=== PATIENT | male | born 1970 | race Caucasian/White ===

== ENCOUNTER 2018-01-02 19:40 | Emergency (ER) | payer OTHER ==
[~2018-01-02] VITALS: Ht 182.9 cm; Wt 95.0 kg
[2018-01-02 19:46] VITALS: BP 113/78
[2018-01-02] MEDS ORDERED: IBUPROFEN 200 MG TABLET PO ONE (21:00)
[2018-01-02] MEDS ORDERED: IBUPROFEN 200 MG TABLET ONE (21:01)
== END 2018-01-02 21:20 | disposition home or self-care (01) ==
LOC: ED 20:45
DX: M25.562 Pain in left knee (principal)
CPT/HCPCS: 29505; 99284

== ENCOUNTER 2019-10-15 06:48 | Emergency (ER) | payer BC, OTHER ==
[~2019-10-15] VITALS: Ht 182.9 cm; Wt 97.8 kg
--- NOTE | 2019-10-15 06:53 | NUR ---
CALLED NO ANSWER
[2019-10-15] MEDS ORDERED: ONDANSETRON 2MG/ML, 2ML ONE (07:27)
[2019-10-15] MEDS ORDERED: KETOROLAC 30 MG/1 ML ONE (07:27)
[2019-10-15] MEDS ORDERED: SODIUM CHLORIDE FLUSH 10ML SYR IVF ONE (07:30)
[2019-10-15] MEDS ORDERED: KETOROLAC 30 MG/1 ML IVPush ONE (07:30)
[2019-10-15] MEDS ORDERED: ONDANSETRON 2MG/ML, 2ML IVPush ONE (07:30)
[2019-10-15] MEDS ORDERED: MORPHINE SULFATE 4 MG/ML, 1ML IVPush PRN (07:30)
--- NOTE | 2019-10-15 07:48 | NUR ---
PT WITH R FLANK PAIN STARTING AT 0400 THIS AM. PT STATES HE HAD NOTICED SOME DIFFICULTY URINATING AND PAIN WITH URINATION APPROX 2 DAYS AGO. PT WITH NO HX OF KIDNEY STONES. PT DENIES N/V/D. PT TO BP, CONT PULSE OX, PIV INITIATED PT MEDICATED PER JUL. LABS DRAWN AND SENT. PT AMBULATED TO BR WITH STEADY GAIT, UA SAMPLE SENT TO LAB
[2019-10-15 07:54] LABS: BASOPHILS # (AUTO) 0.12 x10^3/uL (0-0.1); BASOPHILS % (AUTO) 1 % (0-1); EOSINOPHILS # (AUTO) 0.08 x10^3/uL (0-0.4); EOSINOPHILS % (AUTO) 1 % (1-7); LYMPHOCYTES # (AUTO) 1.52 x10^3/uL (1-3.4); LYMPHOCYTES % (AUTO) 18 % (22-44); MD NO; MEAN CORPUSCULAR HEMOGLOBIN 31.3 pg (27.5-34.5); MEAN CORPUSCULAR HGB CONC 33.5 g/dL (33.2-36.2); MEAN PLATELET VOLUME 8.3 fL (7.4-10.4); MONOCYTES # (AUTO) 0.76 x10^3/uL (0.2-0.8); MONOCYTES % (AUTO) 9 % (2-9); NEUTROPHILS # (AUTO) 5.91 x10^3/uL (1.8-6.8); NEUTROPHILS % (AUTO) 71 % (42-75); PLATELET COUNT 256 x10^3/uL (130-400); RED BLOOD COUNT 5.08 x10^6/uL (4.38-5.82); RED CELL DISTRIBUTION WIDTH 13.4 % (9.4-14.8)
[2019-10-15] MEDS ORDERED: MORPHINE SULFATE 4 MG/ML, 1ML ONE (07:57)
[2019-10-15 08:04] LABS: ALBUMIN 3.9 g/dL (3.4-5.0); ANION GAP 8 mmol/L (5-15); CALCIUM 8.9 mg/dL (8.5-10.1); CHLORIDE 113 mmol/L (98-107); CREATININE 1.13 mg/dL (0.7-1.3)
[2019-10-15 08:10] LABS: MICROSCOPIC INDICATED
[2019-10-15 08:51] VITALS: BP 111/68
--- NOTE | 2019-10-15 08:53 | NUR ---
CT COMPLETED, PT RESTING COMFORTABLY AT THIS TIME, VSS, NAD NOTED. PT PLACED FOR RECHECK
== END 2019-10-15 10:19 | disposition home or self-care (01) ==
LOC: ED 07:06
DX: N20.1 Calculus of ureter (principal); R10.9 Unspecified abdominal pain; M54.9 Dorsalgia, unspecified; R11.0 Nausea
CPT/HCPCS: 36415; 74176; 80048; 81001; 82040; 85025; 96374; 96375; 99284; J1885; J2270; J2405

== ENCOUNTER 2019-10-16 13:54 | Inpatient (IN) | payer BC ==
[~2019-10-16] VITALS: Ht 182.9 cm; Wt 112.7 kg
--- NOTE | 2019-10-16 14:11 | NUR ---
PT REFUSES WHEELCHAIR. PT EDUCATED REGARDING ALL RISKS AND SAFETY. PT STATES "I'D JUST RATHER WALK."
--- NOTE | 2019-10-16 14:11 | NUR ---
[employer] MECHANIC: PT TO ROOM FROM TRIAGE, GAIT SLOW AND STEADY
--- NOTE | 2019-10-16 14:36 | NUR ---
PT C/O LOWER ABD PAIN. PT SEEN HERE YESTERDAY AND DX WITH KIDNEY STONES. PT FILLED PRESCRIPTION OF PERCOCET AND ZOFRAN. PT STATES ZOFRAN IS WORKING, BUT NOT PERCOCET. PT STATES LAST BM WAS SATURDAY, THINKS HE MAY BE CONSTIPATED. TOOK STOOL SOFTENER THIS AM. PT AMBULATED TO RESTROOM TO PROVIDE URINE SAMPLE, UA COLLECTED AND SENT TO LAB. PIV PLACED, BLOOD COLLECTED. AWAITING ORDERS AT THIS TIME.
[2019-10-16 14:53] LABS: MICROSCOPIC AUTO
--- NOTE | 2019-10-16 15:14 | NUR ---
AT BEDSIDE FOR ASSESSMENT.
[2019-10-16] MEDS ORDERED: FAMOTIDINE 20 MG/2 ML ONE (15:26)
[2019-10-16] MEDS ORDERED: MORPHINE SULFATE 4 MG/ML, 1ML ONE (15:26)
[2019-10-16] MEDS ORDERED: ONDANSETRON 2MG/ML, 2ML ONE ×2 (15:26→21:36)
[2019-10-16] MEDS ORDERED: SODIUM CHLORIDE 0.9% 1,000ML IVBOLUS ONE (15:30)
[2019-10-16] MEDS ORDERED: FAMOTIDINE 20 MG/2 ML IV ONE (15:30)
[2019-10-16] MEDS ORDERED: SODIUM CHLORIDE FLUSH 10ML SYR IVF ONE (15:30)
[2019-10-16] MEDS ORDERED: ONDANSETRON 2MG/ML, 2ML IVPush ONE (15:30)
[2019-10-16] MEDS ORDERED: MORPHINE SULFATE 4 MG/ML, 1ML IVPush PRN (15:30)
--- NOTE | 2019-10-16 15:37 | NUR ---
MEDS ADMIN PER JUL. IVF RUNNING. PT PLACED ON 2L OXYGEN FOR SAFETY. CALL LIGHT IN REACH. PT AWARE OF STRICT NPO.
[2019-10-16 15:58] LABS: ALANINE AMINOTRANSFERASE 40 U/L (12-78); ALBUMIN 4.4 g/dL (3.4-5.0); ANION GAP 7 mmol/L (5-15); CALCIUM 9.1 mg/dL (8.5-10.1); CHLORIDE 103 mmol/L (98-107); CREATININE 1.83 mg/dL (0.7-1.3)
[2019-10-16 16:00] LABS: ALKALINE PHOSPHATASE 86 U/L (45-117); BILIRUBIN,TOTAL 1.4 mg/dL (0.2-1.0); TOTAL PROTEIN 8.8 g/dL (6.4-8.2)
[2019-10-16 16:34] LABS: MEAN CORPUSCULAR HGB CONC 33.2 g/dL (33.2-36.2); MEAN CORPUSCULAR VOLUME 93.5 fL (81-97); MEAN PLATELET VOLUME 9.2 fL (7.4-10.4); PLATELET COUNT 235 x10^3/uL (130-400); RED BLOOD COUNT 5.36 x10^6/uL (4.38-5.82); RED CELL DISTRIBUTION WIDTH 13.8 % (9.4-14.8)
--- NOTE | 2019-10-16 16:37 | NUR ---
NEW ORDER RECEIVED FOR CT. PT GOING TO CT.
[2019-10-16 17:13] LABS: BASOPHILS # (AUTO) 0.01 x10^3/uL (0-0.1); BASOPHILS % (AUTO) 0 % (0-1); EOSINOPHILS # (AUTO) 0.02 x10^3/uL (0-0.4); EOSINOPHILS % (AUTO) 0 % (1-7); LYMPHOCYTES # (AUTO) 1.46 x10^3/uL (1-3.4); LYMPHOCYTES % (AUTO) 10 % (22-44); MD SCAN; MONOCYTES # (AUTO) 1.47 x10^3/uL (0.2-0.8); MONOCYTES % (AUTO) 10 % (2-9); NEUTROPHILS # (AUTO) 11.48 x10^3/uL (1.8-6.8); NEUTROPHILS % (AUTO) 80 % (42-75)
--- NOTE | 2019-10-16 17:15 | NUR ---
ALL RESULTS ARE BACK AT THIS TIME. CHART UP FOR RECHECK.
--- NOTE | 2019-10-16 17:23 | NUR ---
AWAITING CONSULT WITH UROLOGY.
--- NOTE | 2019-10-16 17:36 | NUR ---
MD AT BEDSIDE TO UPDATE PT ON POC.
[2019-10-16] MEDS ORDERED: TAMSULOSIN 0.4 MG CAP.ER.24H ONE (17:43)
[2019-10-16] MEDS ORDERED: HYDROmorphone 1 MG/ML, 1ML INJ ONE (17:44)
--- NOTE | 2019-10-16 17:49 | NUR ---
MEDS ADMIN PER JUL. PT ON OXYGEN FOR SAFETY. PT TO BE ADMITTED.
[2019-10-16] MEDS ORDERED: HYDROmorphone 2 MG/ML, 1ML IVPush PRN ×2 (18:00→20:00)
[2019-10-16] MEDS ORDERED: TAMSULOSIN 0.4 MG CAP.ER.24H PO ONE (18:00)
[2019-10-16] MEDS ORDERED: SODIUM CHLORIDE 0.9% 1,000 ML IV ONE (18:46)
[2019-10-16] MEDS ORDERED: CEFTRIAXONE PMX 1GM/50ML 50 ML ONE (19:00)
[2019-10-16] MEDS ORDERED: HYDROmorphone 1 MG/ML, 1ML INJ IVPush PRN ×2 (19:00→21:30)
[2019-10-16] MEDS ORDERED: SODIUM CHLORIDE FLUSH 10ML SYR IVF PRN (19:00)
[2019-10-16] MEDS ORDERED: ONDANSETRON 2MG/ML, 2ML IVPush PRN ×2 (19:00→20:00)
[2019-10-16] MEDS ORDERED: CEFTRIAXONE PMX 1GM/50ML 50 ML IVPB ONE (19:00)
--- NOTE | 2019-10-16 19:10 | NUR ---
PT AMBULATED TO RESTROOM WITH STEADY GAIT. ABX ADMIN PER JUL. IVF RUNNING. PT RESTING ON GURNEY. NADN. AT BEDSIDE.
--- NOTE | 2019-10-16 19:28 | NUR ---
[facility] HOSPITAL[facility] AT BEDSIDE.
--- NOTE | 2019-10-16 19:42 | NUR ---
REPORT GIVEN TO OR
[2019-10-16] MEDS: SODIUM CHLORIDE 0.9% 1,000 ML IV SCH (19:56)
[2019-10-16] MEDS ORDERED: LABETALOL 5MG/ML, 20ML IVPush PRN (20:00)
[2019-10-16] MEDS ORDERED: LACTULOSE 10 GM/15 ML UDC PO PRN (20:00)
[2019-10-16] MEDS ORDERED: LIDOCAINE GEL 2%, 5ML ONE (20:14)
[2019-10-16] MEDS ORDERED: MIDAZOLAM 1 MG/ML, 2ML ONE (20:14)
[2019-10-16] MEDS ORDERED: FENTANYL PF 100 MCG/2ML ONE (20:14)
[2019-10-16] MEDS ORDERED: PROMETHAZINE 25 MG/ML, 1ML IVPush PRN (21:30)
[2019-10-16] MEDS ORDERED: MEPERIDINE/PF 25MG/0.5ML IVPush PRN (21:30)
[2019-10-16] MEDS ORDERED: LABETALOL 5MG/ML, 20ML IV PRN (21:30)
[2019-10-16] MEDS ORDERED: ALBUTEROL SULFATE 2.5 MG/3 ML NPPB PRN (21:30)
[2019-10-16] MEDS ORDERED: ACETAMINOPHEN 325 MG TABLET PO PRN (21:30)
[2019-10-16] MEDS ORDERED: hydrALAzine 20 MG/ML, 1ML IV PRN (21:30)
[2019-10-16] MEDS ORDERED: OXYcodone 5 MG/5 ML ORAL.SOL UDC PO PRN (21:30)
[2019-10-16] MEDS ORDERED: LORazepam 2 MG/ML, 1ML IVPush PRN (21:30)
[2019-10-16] MEDS ORDERED: FENTANYL PF 100 MCG/2ML IV PRN (21:30)
[2019-10-16] MEDS ORDERED: DEXAMETHASONE 4 MG/ML, 1ML ONE (21:36)
[2019-10-16] MEDS ORDERED: PROPOFOL 10 MG/ML, 20ML ONE (21:36)
[2019-10-16 23:04] VITALS: BP 136/83
[2019-10-17 02:44] VITALS: BP 125/77
[2019-10-17] MEDS: SODIUM CHLORIDE 0.9% 1,000 ML IV SCH ×2 (04:26→12:00)
[2019-10-17 04:56] LABS: BASOPHILS # (AUTO) 0.02 x10^3/uL (0-0.1); BASOPHILS % (AUTO) 0 % (0-1); EOSINOPHILS # (AUTO) 0.01 x10^3/uL (0-0.4); EOSINOPHILS % (AUTO) 0 % (1-7); LYMPHOCYTES % (AUTO) 4 % (22-44); MD NO; MEAN CORPUSCULAR HEMOGLOBIN 31.6 pg (27.5-34.5); MEAN CORPUSCULAR HGB CONC 34.1 g/dL (33.2-36.2); MEAN CORPUSCULAR VOLUME 92.9 fL (81-97); MEAN PLATELET VOLUME 8.5 fL (7.4-10.4); MONOCYTES % (AUTO) 6 % (2-9); NEUTROPHILS # (AUTO) 12.42 x10^3/uL (1.8-6.8); NEUTROPHILS % (AUTO) 90 % (42-75); PLATELET COUNT 208 x10^3/uL (130-400); RED BLOOD COUNT 4.52 x10^6/uL (4.38-5.82); RED CELL DISTRIBUTION WIDTH 13.6 % (9.4-14.8)
[2019-10-17 05:05] LABS: ALBUMIN 3.1 g/dL (3.4-5.0); ANION GAP 6 mmol/L (5-15); CALCIUM 8.2 mg/dL (8.5-10.1); CHLORIDE 109 mmol/L (98-107)
[2019-10-17 05:08] LABS: ALANINE AMINOTRANSFERASE 27 U/L (12-78); ALKALINE PHOSPHATASE 65 U/L (45-117); BILIRUBIN,TOTAL 1.2 mg/dL (0.2-1.0); CREATININE 1.21 mg/dL (0.7-1.3); TOTAL PROTEIN 6.7 g/dL (6.4-8.2)
[2019-10-17 06:55] VITALS: BP 117/75
[2019-10-17 13:23] VITALS: BP 130/73
== END 2019-10-17 17:16 | disposition home or self-care (01) | DRG 661 ==
LOC: OR 18:04 → EDIP 18:46 → 3N 22:27
PROVIDERS: ADMIT Internal Medicine; ATTEND Student in an Organized Health Care Education/Training Program
PROC: 0TC68ZZ Extirpation of Matter from Right Ureter, Via Natural or Artificial Opening Endoscopic (ICD-10-PCS; 2019-10-16)
PROC: 0T768DZ Dilation of Right Ureter with Intraluminal Device, Via Natural or Artificial Opening Endoscopic (ICD-10-PCS; principal; 2019-10-16 20:30)
DX: N13.2 Hydronephrosis with renal and ureteral calculous obstruction (principal); D72.829 Elevated white blood cell count, unspecified; N17.9 Acute kidney failure, unspecified; N28.1 Cyst of kidney, acquired; Z88.0 Allergy status to penicillin
CPT/HCPCS: 36415; 74018; 76000; J3490; 74176; 80053; 81001; 83690; 83735; 84100; 85025; 88300; 93005; 96361; 96374; 96375; 99285; G0378; J0696; J1100; J1170; J2250; J2405; J2704; J3010; C2617; J2270; J7030